=== PATIENT | female | born 1995 | race Native Hawaiian/Other Pacific Islander ===

== ENCOUNTER 2020-08-18 22:39 | Outpatient (CLI) | payer SELFPAY ==
[2020-08-18] MEDS ORDERED: LACTATED RINGERS 500 ML IV ONE (23:13)
[2020-08-18 23:33] VITALS: BP 128/75
== END 2020-08-18 23:49 | disposition home or self-care (01) ==
LOC: TRG 22:39 → APU 22:41 → TRG 23:49
PROVIDERS: ATTEND Obstetrics & Gynecology
DX: O36.8120 Decreased fetal movements, second trimester, not applicable or unspecified (principal); Z3A.25 25 weeks gestation of pregnancy
CPT/HCPCS: 59025

== ENCOUNTER 2020-09-03 08:48 | Outpatient (CLI) | payer BC ==
[2020-09-03 09:30] LABS: Basophils % (Auto) 0.2 % (0.0-1.8); Eosinophils # (Auto) 0.1 K/mm3 (0.0-0.4); Eosinophils % (Auto) 1.1 % (0.0-4.3); Hematocrit 39.5 % (30.3-42.9); Hemoglobin 13.2 gm/dl (10.1-14.3); Lymphocytes # (Auto) 2.5 K/mm3 (1.2-5.4); Mean Corpuscular HGB Conc 33 % (30-34); Mean Corpuscular Volume 88 fl (79-97); Monocytes # (Auto) 0.6 K/mm3 (0.0-0.8); Monocytes % (Auto) 4.8 % (0.0-7.3); Platelet Count 207 K/mm3 (140-440); Red Blood Count 4.49 M/mm3 (3.65-5.03)
== END 2020-09-03 08:49 | disposition home or self-care (01) ==
LOC: LAB 08:48
PROVIDERS: ATTEND Advanced Practice Midwife
DX: Z34.90 Encounter for supervision of normal pregnancy, unspecified, unspecified trimester (principal); Z3A.00 Weeks of gestation of pregnancy not specified
CPT/HCPCS: 36415; 82951; 85025; 86592; 86689

== ENCOUNTER 2020-09-30 10:41 | Outpatient (CLI) | payer BC ==
[2020-09-30 16:57] LABS: Total Volume,Urine 5400 ml
== END 2020-09-30 10:42 | disposition home or self-care (01) ==
LOC: LAB 10:41
PROVIDERS: ATTEND Obstetrics & Gynecology
DX: Z34.90 Encounter for supervision of normal pregnancy, unspecified, unspecified trimester (principal)
CPT/HCPCS: 84156

== ENCOUNTER 2020-10-12 23:31 | Outpatient (CLI) | payer BC ==
[2020-10-13] MEDS ORDERED: LACTATED RINGERS 500 ML IV ONE (00:22)
[2020-10-13] MEDS ORDERED: ACETAMINOPHEN 500 MG TAB PO ONE (01:35)
[2020-10-13] MEDS ORDERED: ONDANSETRON 4 MG/2 ML INJ IV PRN (01:38)
[2020-10-13 01:39] LABS: Hematocrit 39.6 % (30.3-42.9); Hemoglobin 13.3 gm/dl (10.1-14.3); Mean Corpuscular HGB Conc 34 % (30-34); Mean Corpuscular Volume 86 fl (79-97); Platelet Count 206 K/mm3 (140-440); Red Blood Count 4.59 M/mm3 (3.65-5.03); Red Cell Distribution Width 13.9 % (13.2-15.2)
[2020-10-13 01:43] LABS: Bacteria,Urine 1+ /HPF (Negative); Bilirubin,Urine NEG (Negative); Blood,Urine NEG (Negative); Color,Urine Colorless (Yellow); Urobilinogen,Urine < 2.0 mg/dL (<2.0); WBC,Urine < 1.0 /HPF (0.0-6.0)
[2020-10-13 01:50] LABS: Alanine Aminotransferase 9 units/L (7-56)
[2020-10-13 02:00] LABS: Uric Acid 6.3 mg/dL (3.5-7.6)
[2020-10-13 02:11] VITALS: BP 132/84
== END 2020-10-13 02:30 | disposition home or self-care (01) ==
LOC: TRG 23:31 → APU 23:46 → TRG 10-13 02:30
PROVIDERS: ATTEND Obstetrics & Gynecology
DX: O13.3 Gestational [pregnancy-induced] hypertension without significant proteinuria, third trimester (principal); O26.893 Other specified pregnancy related conditions, third trimester; R51.9 Headache, unspecified; O47.03 False labor before 37 completed weeks of gestation, third trimester; Z3A.33 33 weeks gestation of pregnancy
CPT/HCPCS: 36415; 59025; 81001; 82565; 83615; 84450; 84460; 84550; 85027; 96365; J2405

== ENCOUNTER 2020-10-17 22:56 | Inpatient (IN) | payer BC ==
[2020-10-18 00:03] LABS: Hematocrit 38.7 % (30.3-42.9); Mean Corpuscular HGB Conc 34 % (30-34); Mean Corpuscular Volume 87 fl (79-97); Platelet Count 191 K/mm3 (140-440); Red Blood Count 4.47 M/mm3 (3.65-5.03); Red Cell Distribution Width 13.7 % (13.2-15.2)
[2020-10-18 00:07] LABS: Bacteria,Urine 1+ /HPF (Negative); Bilirubin,Urine NEG (Negative); Blood,Urine NEG (Negative); Color,Urine Colorless (Yellow); Urobilinogen,Urine < 2.0 mg/dL (<2.0); WBC,Urine < 1.0 /HPF (0.0-6.0)
[2020-10-18 00:25] LABS: Alanine Aminotransferase 8 units/L (7-56)
[2020-10-18 02:39] LABS: Uric Acid 6.7 mg/dL (3.5-7.6)
[2020-10-18] MEDS ORDERED: PANTOPRAZOLE 40 MG INJ IV SCH (03:00)
[2020-10-18] MEDS ORDERED: valACYclovir 500 MG TAB PO ONE (03:05)
--- NOTE | 2020-10-18 03:05 | History and Physical Report ---
History of Present Illness Date of examination: 10/18/20 Chief complaint: my blood pressure was high at home History of present illness: Pt is a 25 year old female primigravida CHETAN 11/28/20 at 34w1d who presents with complaint that her blood pressure was 160/80 on her home machine, and denies headache, blurred vision, scotomata or RUQ pain. Upon arrival to the unit, BPs are 140-150/90s. Pt has known diagnosis of gestational hypertension (no meds presently) with 24 hour urine on 09/30/20 contained 216 mg of protein. She has had care at [facility] since 8 wks complicated by left breast mass s/p breast specialist referral (suspected fibroadenoma), and genital herpes without lesion or prodrome. Her GBS status is unknown. Past History Past Medical History: other (breast fibroadenoma ) Past Surgical History: other (ear surgery ) Family/Genetic History: diabetes, cancer Social history: no significant social history - Obstetrical History Expected Date of Delivery: 11/28/20 Actual Gestation: 34 Week(s) 1 Day(s) : 1 Medications and Allergies Allergies Allergy/AdvReac Type Severity Reaction Status Date / Time No Known Allergies Allergy Unverified 08/18/20 23:13 Home Medications Medication Instructions Recorded Confirmed Last Taken Type Vit-Fe Fumar-FA [ 1 tab PO DAILY 08/18/20 08/18/20 1 Day Ago History Vitamin] ~08/17/20 Active Meds: Active Medications Lactated Ringer's (Lactated Ringers) 1,000 mls @ 125 mls/hr IV DIRECT KURTIS Pantoprazole Sodium (Pantoprazole 40 Mg Inj) 40 mg IV QDAY KURTIS Review of Systems All systems: negative - Vital Signs Vital signs: Vital Signs Pulse BP 75 147/94 10/17/20 23:27 10/17/20 23:27 Temp Pulse Resp BP Pulse Ox 98.8 F 68 16 155/86 10/17/20 23:29 10/18/20 02:41 10/17/20 23:29 10/18/20 02:41 - Physical Exam Breasts: Positive: deferred Abdomen: Positive: soft (gravid ) Extremities: Positive: normal - Obstetrical FHR: auscultation normal Uterine Contraction Monitor Mode: External Results Result Diagrams: 10/17/20 23:35 10/17/20 23:35 Abnormal lab results 10/17/20 10/17/20 10/17/20 Range/Units 23:35 23:35 23:35 WBC 16.4 H (4.5-11.0) K/mm3 Lactate Dehydrogenase 199 H (91-180) units/L Ur Specific [place] 1.002 L (1.003-1.030) All other labs normal. Assessment and Plan A: IUP at 34w1d Gestational Hypertension Genital Herpes without lesion or prodrome GBS unknown P: Admit to antepartum service PIH panel Collect 24 hour urine protein Ultrasound for presentation and EFW Closely monitor maternal status
[2020-10-18] MEDS: LACTATED RINGERS 1,000 ML IV SCH ×2 (07:46→14:59)
[2020-10-18] MEDS ORDERED: dexAMETHasone 4 MG/ML VIAL IV SCH ×2 (08:00→10:00)
--- NOTE | 2020-10-18 08:53 | Ultrasound Report ---
US OB >= 14 weeks Fetus INDICATION: IUP at 34 wks, gestational hypertension. TECHNIQUE: Transabdominal. COMPARISON: None available. FINDINGS: There is a single intrauterine . Biparietal Diameter = 8.9 cm Head Circumference = 30.5 cm Abdominal Circumference = 29.6 cm Femur Length = 5.8 cm Heart Rate: 150 beats per minute. Estimated Weight in grams (if calculated): 2076 g Position: cephalic. IMPRESSION: 1. Single, living intrauterine with estimated sonographic age of 33 weeks, 4 day(s). 2. No significant sonographic abnormality. Signer Name: Efe Watson MD Signed: 10/18/2020 8:49 AM Workstation Name: [id number]
[2020-10-18] MEDS ORDERED: ACETAMINOPHEN 500 MG TAB PO ONE (12:03)
--- NOTE | 2020-10-18 12:08 | Event Note ---
Date: 10/18/20 On-call MD notified that patient reports headache. Offer a dose of Tylenol. If minimal relief, suggestive of severe disease and would proceed with induction.
[2020-10-18] MEDS ORDERED: ePHEDrine SULFATE 50 MG/1 ML INJ IV PRN (14:21)
[2020-10-18] MEDS ORDERED: LIDOCAINE (2%) 20 MG/1 ML VIAL 20 ML MDV INFILTRATI ONE (14:21)
[2020-10-18] MEDS ORDERED: MINERAL OIL 30 ML ORAL LIQD PO PRN (14:21)
[2020-10-18] MEDS ORDERED: TERBUTALINE 1 MG/1 ML INJ SUB-Q PRN (14:21)
[2020-10-18] MEDS ORDERED: miSOPROStol 200 MCG TAB PR PRN (14:22)
[2020-10-18] MEDS ORDERED: hydrALAZINE 20 MG/1 ML INJ IV PRN (14:22)
[2020-10-18] MEDS ORDERED: LOPERAMIDE 2 MG CAP PO PRN (14:22)
[2020-10-18] MEDS ORDERED: PROMETHAZINE 25 MG RECT SUPP PR PRN (14:22)
[2020-10-18] MEDS ORDERED: CARBOPROST TROMETHAMINE 250 MCG/1 ML INJ IM PRN (14:22)
[2020-10-18] MEDS ORDERED: AMPICILLIN/NS 2 GM/100 ML 2 GM/100 ML BAG IV ONE (14:22)
[2020-10-18] MEDS ORDERED: OXYTOCIN 10 UNIT/1 ML INJ IM PRN (14:22)
[2020-10-18] MEDS ORDERED: BUTORPHANOL 2 MG/1 ML INJ IV PRN ×2 (14:22)
[2020-10-18] MEDS ORDERED: CALCIUM GLUCONATE 1000 MG/10 ML INJ IV PRN (14:22)
[2020-10-18] MEDS ORDERED: DINOPROSTONE 10 MG VAG SUPP VG NR (14:22)
[2020-10-18] MEDS ORDERED: ACETAMINOPHEN 325 MG TAB PO PRN (14:22)
[2020-10-18] MEDS ORDERED: fentaNYL 100 MCG/2 ML INJ IV PRN (14:22)
[2020-10-18] MEDS ORDERED: MAGNESIUM SULFATE 4 GM/100 ML BAG IV ONE (14:22)
[2020-10-18] MEDS ORDERED: LACTATED RINGERS 1,000 ML IV SCH ×2 (14:30)
[2020-10-18] MEDS ORDERED: OXYTOCIN DRIP 30 UNITS/500 ML BAG IV SCH ×2 (15:00)
[2020-10-18] MEDS: MAGNESIUM SULFATE 40GM/1000ML 40 GM/1,000 ML BAG IV SCH (15:39)
[2020-10-18] MEDS ORDERED: AMPICILLIN/NS 1 GM/50 ML 1 GM/50 ML BAG IV SCH (19:00)
[2020-10-18] MEDS: ONDANSETRON 4 MG/2 ML INJ IV PRN (19:54)
[2020-10-18] MEDS: dexAMETHasone 4 MG/ML VIAL IM SCH (22:35)
[2020-10-19] MEDS: LACTATED RINGERS 1,000 ML IV SCH ×2 (02:40→17:24)
[2020-10-19] MEDS: OXYTOCIN DRIP 30 UNITS/500 ML BAG IV SCH ×10 (06:23→15:47)
[2020-10-19] MEDS: dexAMETHasone 4 MG/ML VIAL IM SCH ×2 (08:15→20:11)
[2020-10-19] MEDS: ONDANSETRON 4 MG/2 ML INJ IV PRN (08:23)
--- NOTE | 2020-10-19 08:58 | Progress Note ---
Subjective - Subjective Date of service: 10/19/20 Interval history: AROM clear fluid FHT Category 1 [place]: irrregular cervix 2cm/80/-2 continue oxytocin per protocol AAOx3,no HUGHES at bedside BP's stable on MgSo4 Neuro:intact Maternal/ well being reassuring overall Lien Chavarria MD Objective - Vital Signs Vital Signs: Vital Signs - 12hr 10/18/20 10/18/20 10/18/20 20:59 21:03 21:04 Temperature Pulse Rate 97 H 84 Respiratory 18 Rate Blood Pressure Blood Pressure [Right] O2 Sat by Pulse 98 97 Oximetry 10/18/20 10/18/20 10/18/20 21:09 21:13 21:14 Temperature Pulse Rate 89 94 H 87 Respiratory Rate Blood Pressure 122/68 Blood Pressure [Right] O2 Sat by Pulse 97 94 98 Oximetry 10/18/20 10/18/20 10/18/20 21:19 21:24 21:29 Temperature Pulse Rate 106 H 93 H 106 H Respiratory Rate Blood Pressure Blood Pressure [Right] O2 Sat by Pulse 96 98 98 Oximetry 10/18/20 10/18/20 10/18/20 21:34 21:39 21:44 Temperature Pulse Rate 93 H 93 H 90 Respiratory Rate Blood Pressure 128/72 Blood Pressure [Right] O2 Sat by Pulse 98 98 98 Oximetry 10/18/20 10/18/20 10/18/20 21:49 21:54 21:59 Temperature Pulse Rate 92 H 94 H 94 H Respiratory Rate Blood Pressure Blood Pressure [Right] O2 Sat by Pulse 99 98 97 Oximetry 10/18/20 10/18/20 10/18/20 22:04 22:09 22:13 Temperature Pulse Rate 103 H 93 H 90 Respiratory Rate Blood Pressure 126/71 Blood Pressure [Right] O2 Sat by Pulse 94 99 Oximetry 10/18/20 10/18/20 10/18/20 22:14 22:19 22:24 Temperature Pulse Rate 92 H 96 H 103 H Respiratory Rate Blood Pressure Blood Pressure [Right] O2 Sat by Pulse 97 97 97 Oximetry 10/18/20 10/18/20 10/18/20 22:29 22:34 22:39 Temperature Pulse Rate 110 H 92 H 92 H Respiratory Rate Blood Pressure Blood Pressure [Right] O2 Sat by Pulse 98 98 99 Oximetry 10/18/20 10/18/20 10/18/20 22:43 22:44 22:49 Temperature Pulse Rate 96 H 97 H 95 H Respiratory Rate Blood Pressure 144/88 Blood Pressure [Right] O2 Sat by Pulse 99 98 Oximetry 10/18/20 10/18/20 10/18/20 22:54 22:59 23:04 Temperature Pulse Rate 99 H 102 H 113 H Respiratory Rate Blood Pressure Blood Pressure [Right] O2 Sat by Pulse 98 98 98 Oximetry 10/18/20 10/18/20 10/18/20 23:09 23:14 23:15 Temperature Pulse Rate 108 H 95 H 99 H Respiratory Rate Blood Pressure 135/75 Blood Pressure [Right] O2 Sat by Pulse 98 98 Oximetry 10/18/20 10/18/20 10/18/20 23:19 23:24 23:29 Temperature Pulse Rate 100 H 93 H 90 Respiratory Rate Blood Pressure Blood Pressure [Right] O2 Sat by Pulse 97 97 98 Oximetry 10/18/20 10/18/20 10/18/20 23:34 23:38 23:39 Temperature Pulse Rate 95 H 95 H 89 Respiratory Rate Blood Pressure Blood Pressure [Right] O2 Sat by Pulse 100 94 99 Oximetry 10/18/20 10/18/20 10/18/20 23:43 23:44 23:49 Temperature Pulse Rate 86 91 H 87 Respiratory Rate Blood Pressure 124/70 Blood Pressure [Right] O2 Sat by Pulse 97 96 Oximetry 10/18/20 10/18/20 10/19/20 23:54 23:59 00:04 Temperature Pulse Rate 87 95 H 100 H Respiratory Rate Blood Pressure Blood Pressure [Right] O2 Sat by Pulse 95 97 98 Oximetry 10/19/20 10/19/20 10/19/20 00:09 00:13 00:14 Temperature Pulse Rate 93 H 96 H 89 Respiratory Rate Blood Pressure 133/81 Blood Pressure [Right] O2 Sat by Pulse 98 99 Oximetry 10/19/20 10/19/20 10/19/20 00:19 00:24 00:29 Temperature Pulse Rate 97 H 102 H 95 H Respiratory Rate Blood Pressure Blood Pressure [Right] O2 Sat by Pulse 99 94 99 Oximetry 10/19/20 10/19/20 10/19/20 00:34 00:39 00:43 Temperature Pulse Rate 93 H 95 H 96 H Respiratory Rate Blood Pressure 148/82 Blood Pressure [Right] O2 Sat by Pulse 98 99 Oximetry 10/19/20 10/19/20 10/19/20 00:44 00:49 00:54 Temperature Pulse Rate 100 H 99 H 89 Respiratory Rate Blood Pressure Blood Pressure [Right] O2 Sat by Pulse 98 99 98 Oximetry 10/19/20 10/19/20 10/19/20 00:59 01:04 01:09 Temperature Pulse Rate 94 H 93 H 95 H Respiratory Rate Blood Pressure Blood Pressure [Right] O2 Sat by Pulse 93 97 97 Oximetry 10/19/20 10/19/20 10/19/20 01:13 01:14 01:19 Temperature Pulse Rate 90 90 87 Respiratory Rate Blood Pressure 147/73 Blood Pressure [Right] O2 Sat by Pulse 94 97 96 Oximetry 10/19/20 10/19/20 10/19/20 01:24 01:29 01:32 Temperature Pulse Rate 88 93 H 98 H Respiratory Rate Blood Pressure Blood Pressure [Right] O2 Sat by Pulse 96 96 93 Oximetry 10/19/20 10/19/20 10/19/20 01:34 01:39 01:43 Temperature Pulse Rate 100 H 92 H 90 Respiratory Rate Blood Pressure 137/84 Blood Pressure [Right] O2 Sat by Pulse 98 99 Oximetry 10/19/20 10/19/20 10/19/20 01:44 01:49 01:54 Temperature Pulse Rate 94 H 103 H 98 H Respiratory Rate Blood Pressure Blood Pressure [Right] O2 Sat by Pulse 98 99 96 Oximetry 10/19/20 10/19/20 10/19/20 01:59 02:04 02:09 Temperature Pulse Rate 102 H 111 H 95 H Respiratory Rate Blood Pressure Blood Pressure [Right] O2 Sat by Pulse 96 97 97 Oximetry 10/19/20 10/19/20 10/19/20 02:13 02:14 02:19 Temperature Pulse Rate 96 H 96 H 95 H Respiratory Rate Blood Pressure 126/59 Blood Pressure [Right] O2 Sat by Pulse 97 97 Oximetry 10/19/20 10/19/20 10/19/20 02:24 02:29 02:34 Temperature Pulse Rate 95 H 89 87 Respiratory Rate Blood Pressure Blood Pressure [Right] O2 Sat by Pulse 97 95 97 Oximetry 10/19/20 10/19/20 10/19/20 02:38 02:39 02:44 Temperature 97.7 F Pulse Rate 91 H 88 Respiratory 15 Rate Blood Pressure 139/82 Blood Pressure [Right] O2 Sat by Pulse 96 97 Oximetry 10/19/20 10/19/20 10/19/20 02:49 02:54 02:59 Temperature Pulse Rate 87 84 84 Respiratory Rate Blood Pressure Blood Pressure [Right] O2 Sat by Pulse 96 97 96 Oximetry 10/19/20 10/19/20 10/19/20 03:04 03:09 03:14 Temperature Pulse Rate 83 83 87 Respiratory Rate Blood Pressure Blood Pressure [Right] O2 Sat by Pulse 95 95 95 Oximetry 10/19/20 10/19/20 10/19/20 03:19 03:24 03:27 Temperature Pulse Rate 86 83 85 Respiratory Rate Blood Pressure Blood Pressure [Right] O2 Sat by Pulse 95 95 94 Oximetry 10/19/20 10/19/20 10/19/20 03:29 03:34 03:37 Temperature Pulse Rate 81 91 H 88 Respiratory Rate Blood Pressure Blood Pressure [Right] O2 Sat by Pulse 95 95 94 Oximetry 10/19/20 10/19/20 10/19/20 03:39 03:44 03:47 Temperature Pulse Rate 91 H 82 91 H Respiratory Rate Blood Pressure 123/58 Blood Pressure [Right] O2 Sat by Pulse 96 96 94 Oximetry 10/19/20 10/19/20 10/19/20 03:49 03:54 03:58 Temperature Pulse Rate 89 84 79 Respiratory Rate Blood Pressure Blood Pressure [Right] O2 Sat by Pulse 96 96 94 Oximetry 10/19/20 10/19/20 10/19/20 03:59 04:04 04:09 Temperature Pulse Rate 84 81 81 Respiratory Rate Blood Pressure Blood Pressure [Right] O2 Sat by Pulse 96 97 97 Oximetry 10/19/20 10/19/20 10/19/20 04:14 04:19 04:24 Temperature Pulse Rate 85 83 85 Respiratory Rate Blood Pressure Blood Pressure [Right] O2 Sat by Pulse 97 97 97 Oximetry 10/19/20 10/19/20 10/19/20 04:29 04:34 04:39 Temperature Pulse Rate 84 98 H 83 Respiratory Rate Blood Pressure 129/69 Blood Pressure [Right] O2 Sat by Pulse 96 97 98 Oximetry 10/19/20 10/19/20 10/19/20 04:44 04:49 04:54 Temperature Pulse Rate 83 84 85 Respiratory Rate Blood Pressure Blood Pressure [Right] O2 Sat by Pulse 97 97 97 Oximetry 10/19/20 10/19/20 10/19/20 04:59 05:04 05:09 Temperature Pulse Rate 81 83 92 H Respiratory Rate Blood Pressure Blood Pressure [Right] O2 Sat by Pulse 97 96 97 Oximetry 10/19/20 10/19/20 10/19/20 05:14 05:19 05:24 Temperature Pulse Rate 81 87 92 H Respiratory Rate Blood Pressure Blood Pressure [Right] O2 Sat by Pulse 97 97 97 Oximetry 10/19/20 10/19/20 10/19/20 05:29 05:34 05:39 Temperature Pulse Rate 87 90 92 H Respiratory Rate Blood Pressure 125/69 Blood Pressure [Right] O2 Sat by Pulse 98 98 98 Oximetry 10/19/20 10/19/20 10/19/20 05:44 05:49 05:54 Temperature Pulse Rate 97 H 96 H 89 Respiratory Rate Blood Pressure Blood Pressure [Right] O2 Sat by Pulse 97 97 98 Oximetry 10/19/20 10/19/20 10/19/20 05:59 06:04 06:09 Temperature Pulse Rate 84 84 82 Respiratory Rate Blood Pressure Blood Pressure [Right] O2 Sat by Pulse 97 98 98 Oximetry 10/19/20 10/19/20 10/19/20 06:14 06:19 06:23 Temperature Pulse Rate 81 80 92 H Respiratory Rate Blood Pressure 130/69 Blood Pressure [Right] O2 Sat by Pulse 97 97 91 Oximetry 10/19/20 10/19/20 10/19/20 06:24 06:29 06:34 Temperature Pulse Rate 87 82 81 Respiratory Rate Blood Pressure Blood Pressure [Right] O2 Sat by Pulse 96 96 96 Oximetry 10/19/20 10/19/20 10/19/20 06:39 06:44 06:48 Temperature Pulse Rate 84 93 H 96 H Respiratory Rate Blood Pressure 129/73 Blood Pressure [Right] O2 Sat by Pulse 96 98 92 Oximetry 10/19/20 10/19/20 10/19/20 06:49 06:54 06:58 Temperature Pulse Rate 94 H 97 H 105 H Respiratory Rate Blood Pressure Blood Pressure [Right] O2 Sat by Pulse 98 98 94 Oximetry 10/19/20 10/19/20 10/19/20 06:59 07:04 07:07 Temperature Pulse Rate 86 87 78 Respiratory Rate Blood Pressure Blood Pressure [Right] O2 Sat by Pulse 98 97 94 Oximetry 10/19/20 10/19/20 10/19/20 07:09 07:14 07:19 Temperature Pulse Rate 76 89 84 Respiratory Rate Blood Pressure Blood Pressure [Right] O2 Sat by Pulse 94 97 98 Oximetry 10/19/20 10/19/20 10/19/20 07:24 07:29 07:34 Temperature Pulse Rate 82 93 H 80 Respiratory Rate Blood Pressure Blood Pressure [Right] O2 Sat by Pulse 97 96 96 Oximetry 10/19/20 10/19/20 10/19/20 07:39 07:44 07:49 Temperature Pulse Rate 91 H 76 84 Respiratory Rate Blood Pressure 123/68 Blood Pressure [Right] O2 Sat by Pulse 96 98 97 Oximetry 10/19/20 10/19/20 10/19/20 07:53 07:54 07:55 Temperature 98.1 F Pulse Rate 77 101 H 80 Respiratory 18 Rate Blood Pressure 126/61 Blood Pressure 126/61 [Right] O2 Sat by Pulse 97 97 Oximetry 10/19/20 10/19/20 10/19/20 07:59 08:01 08:04 Temperature Pulse Rate 80 92 H 83 Respiratory Rate Blood Pressure 120/61 Blood Pressure [Right] O2 Sat by Pulse 97 95 Oximetry 10/19/20 10/19/20 10/19/20 08:09 08:14 08:19 Temperature Pulse Rate 104 H 85 81 Respiratory Rate Blood Pressure Blood Pressure [Right] O2 Sat by Pulse 96 97 98 Oximetry 10/19/20 10/19/20 10/19/20 08:24 08:29 08:34 Temperature Pulse Rate 89 83 87 Respiratory Rate Blood Pressure Blood Pressure [Right] O2 Sat by Pulse 96 96 98 Oximetry 10/19/20 10/19/20 10/19/20 08:39 08:44 08:48 Temperature Pulse Rate 83 83 86 Respiratory Rate Blood Pressure 109/56 Blood Pressure [Right] O2 Sat by Pulse 95 95 94 Oximetry 10/19/20 10/19/20 08:49 08:54 Temperature Pulse Rate 91 H 90 Respiratory Rate Blood Pressure Blood Pressure [Right] O2 Sat by Pulse 97 98 Oximetry - Labs Labs: Abnormal Labs 10/17/20 10/17/20 10/17/20 23:35 23:35 23:35 WBC 16.4 H Magnesium Lactate Dehydrogenase 199 H Ur Specific [place] 1.002 L 10/19/20 10/19/20 00:59 07:08 WBC Magnesium 5.80 H 5.80 H Lactate Dehydrogenase Ur Specific [place] Laboratory Results - last 24 hr 10/18/20 10/19/20 10/19/20 15:00 00:59 07:08 Magnesium 5.80 H 5.80 H Blood Type A POSITIVE Antibody Screen Negative
[2020-10-19] MEDS ORDERED: AMPICILLIN/NS 2 GM/100 ML 2 GM/100 ML BAG IV ONE (10:30)
[2020-10-19] MEDS ORDERED: valACYclovir 500 MG TAB PO ONE (11:00)
[2020-10-19] MEDS: MAGNESIUM SULFATE 40GM/1000ML 40 GM/1,000 ML BAG IV SCH (11:53)
[2020-10-19] MEDS: AMPICILLIN/NS 1 GM/50 ML 1 GM/50 ML BAG IV SCH ×3 (14:35→20:08)
[2020-10-19] MEDS: miSOPROStol 25 MCG TAB PO SCH (18:46)
--- NOTE | 2020-10-19 20:33 | Progress Note ---
Subjective - Subjective Date of service: 10/19/20 Interval history: PM Rounds FHT 130 [place],minimal to moderate variability: Category 1 tracing [place]: irregular Oxytocin to 18mu/min wiht no response, plan for cytotoec 25MCG PO Q6x4 doses then restart pitocin if needed GBS pos on ABx MGSO4: leve ~6 BPs stable Continue current managment Maternal/ well being reassuring overall. Lien Barrios Objective - Vital Signs Vital Signs: Vital Signs - 12hr 10/19/20 10/19/20 10/19/20 08:34 08:39 08:44 Temperature Pulse Rate 87 83 83 Respiratory Rate Blood Pressure 109/56 Blood Pressure [Right] O2 Sat by Pulse 98 95 95 Oximetry 10/19/20 10/19/20 10/19/20 08:48 08:49 08:54 Temperature Pulse Rate 86 91 H 90 Respiratory Rate Blood Pressure Blood Pressure [Right] O2 Sat by Pulse 94 97 98 Oximetry 10/19/20 10/19/20 10/19/20 08:59 09:03 09:04 Temperature Pulse Rate 75 72 78 Respiratory Rate Blood Pressure 118/68 Blood Pressure [Right] O2 Sat by Pulse 96 94 96 Oximetry 10/19/20 10/19/20 10/19/20 09:09 09:12 09:14 Temperature Pulse Rate 79 81 85 Respiratory Rate Blood Pressure Blood Pressure [Right] O2 Sat by Pulse 96 94 96 Oximetry 10/19/20 10/19/20 10/19/20 09:19 09:24 09:29 Temperature Pulse Rate 82 85 78 Respiratory Rate Blood Pressure Blood Pressure [Right] O2 Sat by Pulse 97 96 97 Oximetry 10/19/20 10/19/20 10/19/20 09:34 09:39 09:44 Temperature Pulse Rate 77 75 78 Respiratory Rate Blood Pressure 124/81 Blood Pressure [Right] O2 Sat by Pulse 97 96 98 Oximetry 10/19/20 10/19/20 10/19/20 09:49 09:54 09:59 Temperature Pulse Rate 87 107 H 90 Respiratory Rate Blood Pressure Blood Pressure [Right] O2 Sat by Pulse 96 98 99 Oximetry 10/19/20 10/19/20 10/19/20 10:05 10:10 10:15 Temperature Pulse Rate 85 86 81 Respiratory Rate Blood Pressure Blood Pressure [Right] O2 Sat by Pulse 98 98 96 Oximetry 10/19/20 10/19/20 10/19/20 10:20 10:25 10:30 Temperature Pulse Rate 75 82 90 Respiratory Rate Blood Pressure Blood Pressure [Right] O2 Sat by Pulse 97 96 96 Oximetry 10/19/20 10/19/20 10/19/20 10:35 10:39 10:40 Temperature Pulse Rate 85 72 104 H Respiratory Rate Blood Pressure 120/61 Blood Pressure [Right] O2 Sat by Pulse 95 97 Oximetry 10/19/20 10/19/20 10/19/20 10:45 10:50 10:55 Temperature Pulse Rate 77 86 72 Respiratory Rate Blood Pressure Blood Pressure [Right] O2 Sat by Pulse 96 97 96 Oximetry 10/19/20 10/19/20 10/19/20 11:00 11:02 11:05 Temperature Pulse Rate 79 72 73 Respiratory Rate Blood Pressure 119/61 Blood Pressure [Right] O2 Sat by Pulse 97 93 96 Oximetry 10/19/20 10/19/20 10/19/20 11:10 11:15 11:20 Temperature Pulse Rate 76 76 74 Respiratory Rate Blood Pressure Blood Pressure [Right] O2 Sat by Pulse 97 96 96 Oximetry 10/19/20 10/19/20 10/19/20 11:25 11:30 11:35 Temperature Pulse Rate 82 74 84 Respiratory Rate Blood Pressure Blood Pressure [Right] O2 Sat by Pulse 96 96 95 Oximetry 10/19/20 10/19/20 10/19/20 11:39 11:40 11:45 Temperature Pulse Rate 80 76 78 Respiratory Rate Blood Pressure 127/71 Blood Pressure [Right] O2 Sat by Pulse 96 97 Oximetry 10/19/20 10/19/20 10/19/20 11:50 11:54 11:55 Temperature Pulse Rate 79 81 85 Respiratory Rate Blood Pressure 126/71 Blood Pressure [Right] O2 Sat by Pulse 97 97 Oximetry 10/19/20 10/19/20 10/19/20 11:59 12:00 12:05 Temperature 98.2 F Pulse Rate 84 84 78 Respiratory 18 Rate Blood Pressure Blood Pressure 126/71 [Right] O2 Sat by Pulse 97 97 96 Oximetry 10/19/20 10/19/20 10/19/20 12:10 12:15 12:20 Temperature Pulse Rate 83 84 80 Respiratory Rate Blood Pressure Blood Pressure [Right] O2 Sat by Pulse 97 97 95 Oximetry 10/19/20 10/19/20 10/19/20 12:25 12:30 12:35 Temperature Pulse Rate 82 92 H 84 Respiratory Rate Blood Pressure Blood Pressure [Right] O2 Sat by Pulse 97 97 97 Oximetry 10/19/20 10/19/20 10/19/20 12:39 12:40 12:45 Temperature Pulse Rate 92 H 92 H 84 Respiratory Rate Blood Pressure 133/70 Blood Pressure [Right] O2 Sat by Pulse 92 97 98 Oximetry 10/19/20 10/19/20 10/19/20 12:49 12:50 12:55 Temperature Pulse Rate 80 85 100 H Respiratory Rate Blood Pressure 135/73 Blood Pressure [Right] O2 Sat by Pulse 98 99 Oximetry 10/19/20 10/19/20 10/19/20 13:00 13:05 13:09 Temperature Pulse Rate 88 99 H 84 Respiratory Rate Blood Pressure Blood Pressure [Right] O2 Sat by Pulse 99 98 94 Oximetry 10/19/20 10/19/20 10/19/20 13:10 13:15 13:20 Temperature Pulse Rate 87 94 H 89 Respiratory Rate Blood Pressure Blood Pressure [Right] O2 Sat by Pulse 98 98 98 Oximetry 10/19/20 10/19/20 10/19/20 13:25 13:29 13:30 Temperature Pulse Rate 97 H 92 H 92 H Respiratory Rate Blood Pressure 133/97 Blood Pressure [Right] O2 Sat by Pulse 98 98 Oximetry 10/19/20 10/19/20 10/19/20 13:35 13:39 13:40 Temperature Pulse Rate 90 91 H 93 H Respiratory Rate Blood Pressure 135/83 Blood Pressure [Right] O2 Sat by Pulse 96 97 Oximetry 10/19/20 10/19/20 10/19/20 13:45 13:50 13:55 Temperature Pulse Rate 93 H 95 H 88 Respiratory Rate Blood Pressure Blood Pressure [Right] O2 Sat by Pulse 98 98 98 Oximetry 10/19/20 10/19/20 10/19/20 14:00 14:05 14:07 Temperature Pulse Rate 87 92 H 94 H Respiratory Rate Blood Pressure 146/96 Blood Pressure [Right] O2 Sat by Pulse 98 98 Oximetry 10/19/20 10/19/20 10/19/20 14:10 14:11 14:15 Temperature Pulse Rate 85 75 88 Respiratory Rate Blood Pressure 133/69 Blood Pressure [Right] O2 Sat by Pulse 98 98 Oximetry 10/19/20 10/19/20 10/19/20 14:20 14:25 14:30 Temperature Pulse Rate 86 84 91 H Respiratory Rate Blood Pressure Blood Pressure [Right] O2 Sat by Pulse 96 97 94 Oximetry 10/19/20 10/19/20 10/19/20 14:31 14:35 14:40 Temperature Pulse Rate 81 82 71 Respiratory Rate Blood Pressure 115/68 Blood Pressure [Right] O2 Sat by Pulse 94 96 95 Oximetry 10/19/20 10/19/20 10/19/20 14:45 14:50 14:55 Temperature Pulse Rate 69 66 72 Respiratory Rate Blood Pressure Blood Pressure [Right] O2 Sat by Pulse 96 96 95 Oximetry 10/19/20 10/19/20 10/19/20 14:56 15:00 15:05 Temperature Pulse Rate 75 67 74 Respiratory Rate Blood Pressure Blood Pressure [Right] O2 Sat by Pulse 94 97 98 Oximetry 10/19/20 10/19/20 10/19/20 15:10 15:15 15:20 Temperature Pulse Rate 74 67 71 Respiratory Rate Blood Pressure Blood Pressure [Right] O2 Sat by Pulse 98 97 96 Oximetry 10/19/20 10/19/20 10/19/20 15:25 15:30 15:35 Temperature Pulse Rate 84 91 H 80 Respiratory Rate Blood Pressure Blood Pressure [Right] O2 Sat by Pulse 99 98 97 Oximetry 10/19/20 10/19/20 10/19/20 15:40 15:45 15:49 Temperature Pulse Rate 88 81 85 Respiratory Rate Blood Pressure 136/78 136/82 Blood Pressure [Right] O2 Sat by Pulse 95 98 Oximetry 10/19/20 10/19/20 10/19/20 15:50 15:55 16:00 Temperature Pulse Rate 85 95 H 89 Respiratory Rate Blood Pressure Blood Pressure [Right] O2 Sat by Pulse 97 98 97 Oximetry 10/19/20 10/19/20 10/19/20 16:02 16:05 16:10 Temperature 97.7 F Pulse Rate 90 79 84 Respiratory 12 Rate Blood Pressure Blood Pressure 136/82 [Right] O2 Sat by Pulse 96 98 96 Oximetry 10/19/20 10/19/20 10/19/20 16:15 16:20 16:25 Temperature Pulse Rate 92 H 84 91 H Respiratory Rate Blood Pressure Blood Pressure [Right] O2 Sat by Pulse 98 97 97 Oximetry 10/19/20 10/19/20 10/19/20 16:30 16:34 16:35 Temperature Pulse Rate 85 84 83 Respiratory Rate Blood Pressure Blood Pressure [Right] O2 Sat by Pulse 96 94 95 Oximetry 10/19/20 10/19/20 10/19/20 16:39 16:40 16:45 Temperature Pulse Rate 78 86 89 Respiratory Rate Blood Pressure 105/55 Blood Pressure [Right] O2 Sat by Pulse 97 98 Oximetry 10/19/20 10/19/20 10/19/20 16:50 16:55 17:00 Temperature Pulse Rate 86 83 81 Respiratory Rate Blood Pressure Blood Pressure [Right] O2 Sat by Pulse 98 97 98 Oximetry 10/19/20 10/19/20 10/19/20 17:05 17:10 17:15 Temperature Pulse Rate 87 77 78 Respiratory Rate Blood Pressure Blood Pressure [Right] O2 Sat by Pulse 95 97 98 Oximetry 10/19/20 10/19/20 10/19/20 17:20 17:25 17:59 Temperature Pulse Rate 83 86 81 Respiratory Rate Blood Pressure Blood Pressure [Right] O2 Sat by Pulse 96 97 98 Oximetry 10/19/20 10/19/20 10/19/20 18:00 18:04 18:09 Temperature Pulse Rate 83 82 89 Respiratory Rate Blood Pressure 120/67 Blood Pressure [Right] O2 Sat by Pulse 97 98 Oximetry 10/19/20 10/19/20 10/19/20 18:14 18:19 18:24 Temperature Pulse Rate 89 82 101 H Respiratory Rate Blood Pressure Blood Pressure [Right] O2 Sat by Pulse 98 99 98 Oximetry 10/19/20 10/19/20 10/19/20 18:29 18:30 18:34 Temperature Pulse Rate 89 92 H 89 Respiratory Rate Blood Pressure 133/80 Blood Pressure [Right] O2 Sat by Pulse 99 99 Oximetry 10/19/20 10/19/20 10/19/20 18:39 18:44 18:49 Temperature Pulse Rate 94 H 88 85 Respiratory Rate Blood Pressure Blood Pressure [Right] O2 Sat by Pulse 98 99 99 Oximetry 10/19/20 10/19/20 10/19/20 18:54 18:59 19:00 Temperature Pulse Rate 83 90 79 Respiratory Rate Blood Pressure 124/75 Blood Pressure [Right] O2 Sat by Pulse 98 98 Oximetry 10/19/20 10/19/20 10/19/20 19:04 19:09 19:14 Temperature Pulse Rate 93 H 91 H 94 H Respiratory Rate Blood Pressure Blood Pressure [Right] O2 Sat by Pulse 98 98 99 Oximetry 10/19/20 10/19/20 10/19/20 19:19 19:24 19:29 Temperature Pulse Rate 87 88 94 H Respiratory Rate Blood Pressure Blood Pressure [Right] O2 Sat by Pulse 98 99 99 Oximetry 10/19/20 10/19/20 10/19/20 19:30 19:34 19:39 Temperature Pulse Rate 86 85 91 H Respiratory Rate Blood Pressure 142/82 Blood Pressure [Right] O2 Sat by Pulse 98 99 Oximetry 10/19/20 10/19/20 10/19/20 19:44 19:49 19:54 Temperature Pulse Rate 102 H 80 90 Respiratory Rate Blood Pressure Blood Pressure [Right] O2 Sat by Pulse 99 98 98 Oximetry 10/19/20 10/19/20 10/19/20 19:59 20:00 20:04 Temperature Pulse Rate 92 H 89 88 Respiratory Rate Blood Pressure 126/73 130/86 Blood Pressure [Right] O2 Sat by Pulse 98 98 Oximetry 10/19/20 10/19/20 10/19/20 20:06 20:09 20:14 Temperature 98.1 F Pulse Rate 100 H 86 Respiratory 18 Rate Blood Pressure Blood Pressure [Right] O2 Sat by Pulse 98 98 Oximetry 10/19/20 10/19/20 20:19 20:24 Temperature Pulse Rate 89 93 H Respiratory Rate Blood Pressure Blood Pressure [Right] O2 Sat by Pulse 98 98 Oximetry - Labs Labs: Abnormal Labs 10/17/20 10/17/20 10/17/20 23:35 23:35 23:35 WBC 16.4 H Magnesium Lactate Dehydrogenase 199 H Ur Specific [place] 1.002 L Coronavirus (PCR) 10/19/20 10/19/20 10/19/20 00:59 07:08 09:20 WBC Magnesium 5.80 H 5.80 H Lactate Dehydrogenase Ur Specific [place] Coronavirus (PCR) Positive A 10/19/20 10/19/20 13:07 19:24 WBC Magnesium 6.10 H 6.00 H Lactate Dehydrogenase Ur Specific [place] Coronavirus (PCR) Laboratory Results - last 24 hr 10/19/20 10/19/20 10/19/20 00:59 07:08 09:20 Magnesium 5.80 H 5.80 H Coronavirus (PCR) Positive A 10/19/20 10/19/20 13:07 19:24 Magnesium 6.10 H 6.00 H Coronavirus (PCR)
[2020-10-20] MEDS: miSOPROStol 25 MCG TAB PO SCH (02:27)
[2020-10-20] MEDS: AMPICILLIN/NS 1 GM/50 ML 1 GM/50 ML BAG IV SCH ×4 (05:40→15:29)
--- NOTE | 2020-10-20 05:47 | Progress Note ---
Subjective - Subjective Date of service: 10/20/20 Interval history: AM Rounds pt comfortably, no complaints FHT 130 baseline,minimal to moderate variability: Category 1 tracing [place]: irregular Cervix 3cm/80/-2, SP cytotecx2 doses with good response. Plan for oxytocin per protocol GBS pos on ABx MGSO4: level ~6 BPs stable, good urine output. Neuro exam WNL Continue current management, no S/S chorio, PE stable. Maternal/ well being reassuring overall. Lien Barrios Objective - Vital Signs Vital Signs: Vital Signs - 12hr 10/19/20 10/19/20 10/19/20 17:59 18:00 18:04 Temperature Pulse Rate 81 83 82 Respiratory Rate Blood Pressure 120/67 O2 Sat by Pulse 98 97 Oximetry 10/19/20 10/19/20 10/19/20 18:09 18:14 18:19 Temperature Pulse Rate 89 89 82 Respiratory Rate Blood Pressure O2 Sat by Pulse 98 98 99 Oximetry 10/19/20 10/19/20 10/19/20 18:24 18:29 18:30 Temperature Pulse Rate 101 H 89 92 H Respiratory Rate Blood Pressure 133/80 O2 Sat by Pulse 98 99 Oximetry 10/19/20 10/19/20 10/19/20 18:34 18:39 18:44 Temperature Pulse Rate 89 94 H 88 Respiratory Rate Blood Pressure O2 Sat by Pulse 99 98 99 Oximetry 10/19/20 10/19/20 10/19/20 18:49 18:54 18:59 Temperature Pulse Rate 85 83 90 Respiratory Rate Blood Pressure O2 Sat by Pulse 99 98 98 Oximetry 10/19/20 10/19/20 10/19/20 19:00 19:04 19:09 Temperature Pulse Rate 79 93 H 91 H Respiratory Rate Blood Pressure 124/75 O2 Sat by Pulse 98 98 Oximetry 10/19/20 10/19/20 10/19/20 19:14 19:19 19:24 Temperature Pulse Rate 94 H 87 88 Respiratory Rate Blood Pressure O2 Sat by Pulse 99 98 99 Oximetry 10/19/20 10/19/20 10/19/20 19:29 19:30 19:34 Temperature Pulse Rate 94 H 86 85 Respiratory Rate Blood Pressure 142/82 O2 Sat by Pulse 99 98 Oximetry 10/19/20 10/19/20 10/19/20 19:39 19:44 19:49 Temperature Pulse Rate 91 H 102 H 80 Respiratory Rate Blood Pressure O2 Sat by Pulse 99 99 98 Oximetry 10/19/20 10/19/20 10/19/20 19:54 19:59 20:00 Temperature Pulse Rate 90 92 H 89 Respiratory Rate Blood Pressure 126/73 O2 Sat by Pulse 98 98 Oximetry 10/19/20 10/19/20 10/19/20 20:04 20:06 20:09 Temperature 98.1 F Pulse Rate 88 100 H Respiratory 18 Rate Blood Pressure 130/86 O2 Sat by Pulse 98 98 Oximetry 10/19/20 10/19/20 10/19/20 20:14 20:19 20:24 Temperature Pulse Rate 86 89 93 H Respiratory Rate Blood Pressure O2 Sat by Pulse 98 98 98 Oximetry 10/19/20 10/19/20 10/19/20 20:29 20:30 20:34 Temperature Pulse Rate 84 79 95 H Respiratory Rate Blood Pressure 121/73 O2 Sat by Pulse 99 99 Oximetry 10/19/20 10/19/20 10/19/20 20:39 20:44 20:49 Temperature Pulse Rate 83 88 83 Respiratory Rate Blood Pressure O2 Sat by Pulse 98 97 98 Oximetry 10/19/20 10/19/20 10/19/20 20:54 20:59 21:00 Temperature Pulse Rate 81 82 100 H Respiratory Rate Blood Pressure 118/69 O2 Sat by Pulse 98 97 Oximetry 10/19/20 10/19/20 10/19/20 21:04 21:09 21:14 Temperature Pulse Rate 79 76 92 H Respiratory Rate Blood Pressure O2 Sat by Pulse 98 98 98 Oximetry 10/19/20 10/19/20 10/19/20 21:19 21:24 21:29 Temperature Pulse Rate 76 74 74 Respiratory Rate Blood Pressure O2 Sat by Pulse 99 98 98 Oximetry 10/19/20 10/19/20 10/19/20 21:30 21:34 21:39 Temperature Pulse Rate 74 76 78 Respiratory Rate Blood Pressure 122/72 O2 Sat by Pulse 98 98 Oximetry 10/19/20 10/19/20 10/19/20 21:44 21:49 21:54 Temperature Pulse Rate 78 80 79 Respiratory Rate Blood Pressure O2 Sat by Pulse 98 100 100 Oximetry 10/19/20 10/19/20 10/19/20 21:59 22:00 22:04 Temperature Pulse Rate 77 84 78 Respiratory Rate Blood Pressure 118/75 O2 Sat by Pulse 99 98 Oximetry 10/19/20 10/19/20 10/19/20 22:09 22:14 22:19 Temperature Pulse Rate 79 73 81 Respiratory Rate Blood Pressure O2 Sat by Pulse 98 98 98 Oximetry 10/19/20 10/19/20 10/19/20 22:24 22:29 22:30 Temperature Pulse Rate 77 77 87 Respiratory Rate Blood Pressure 135/80 O2 Sat by Pulse 98 97 Oximetry 10/19/20 10/19/20 10/19/20 22:34 22:39 22:44 Temperature Pulse Rate 77 79 81 Respiratory Rate Blood Pressure O2 Sat by Pulse 97 98 98 Oximetry 10/19/20 10/19/20 10/19/20 22:49 22:54 22:59 Temperature Pulse Rate 74 75 77 Respiratory Rate Blood Pressure O2 Sat by Pulse 98 98 97 Oximetry 10/19/20 10/19/20 10/19/20 23:00 23:04 23:09 Temperature Pulse Rate 93 H 76 80 Respiratory Rate Blood Pressure 150/79 O2 Sat by Pulse 94 97 96 Oximetry 10/19/20 10/19/20 10/19/20 23:14 23:19 23:24 Temperature Pulse Rate 77 82 91 H Respiratory Rate Blood Pressure O2 Sat by Pulse 97 98 98 Oximetry 10/19/20 10/19/20 10/19/20 23:29 23:31 23:34 Temperature Pulse Rate 91 H 73 85 Respiratory Rate Blood Pressure 133/74 O2 Sat by Pulse 96 98 Oximetry 10/19/20 10/19/20 10/19/20 23:39 23:44 23:49 Temperature Pulse Rate 88 86 97 H Respiratory Rate Blood Pressure O2 Sat by Pulse 98 97 97 Oximetry 10/19/20 10/19/20 10/20/20 23:54 23:59 00:00 Temperature Pulse Rate 106 H 83 81 Respiratory Rate Blood Pressure 129/83 O2 Sat by Pulse 97 99 Oximetry 10/20/20 10/20/20 10/20/20 00:04 00:09 00:14 Temperature Pulse Rate 83 86 81 Respiratory Rate Blood Pressure O2 Sat by Pulse 97 97 97 Oximetry 10/20/20 10/20/20 10/20/20 00:19 00:24 00:29 Temperature Pulse Rate 78 92 H 85 Respiratory Rate Blood Pressure O2 Sat by Pulse 97 98 97 Oximetry 10/20/20 10/20/20 10/20/20 00:30 00:34 00:39 Temperature Pulse Rate 75 88 96 H Respiratory Rate Blood Pressure 140/86 O2 Sat by Pulse 97 99 Oximetry 10/20/20 10/20/20 10/20/20 00:44 00:45 00:49 Temperature 98.4 F Pulse Rate 69 79 Respiratory 18 Rate Blood Pressure O2 Sat by Pulse 99 99 Oximetry 10/20/20 10/20/20 10/20/20 00:54 00:59 01:01 Temperature Pulse Rate 77 77 73 Respiratory Rate Blood Pressure 109/59 O2 Sat by Pulse 98 97 Oximetry 10/20/20 10/20/20 10/20/20 01:04 01:09 01:14 Temperature Pulse Rate 76 74 71 Respiratory Rate Blood Pressure O2 Sat by Pulse 97 97 97 Oximetry 10/20/20 10/20/20 10/20/20 01:19 01:24 01:29 Temperature Pulse Rate 72 72 73 Respiratory Rate Blood Pressure O2 Sat by Pulse 97 97 97 Oximetry 10/20/20 10/20/20 10/20/20 01:31 01:34 01:39 Temperature Pulse Rate 70 69 71 Respiratory Rate Blood Pressure 103/56 O2 Sat by Pulse 97 97 Oximetry 10/20/20 10/20/20 10/20/20 01:44 01:49 01:54 Temperature Pulse Rate 72 75 84 Respiratory Rate Blood Pressure O2 Sat by Pulse 97 97 97 Oximetry 10/20/20 10/20/20 10/20/20 01:59 02:01 02:04 Temperature Pulse Rate 70 96 H 67 Respiratory Rate Blood Pressure 114/63 O2 Sat by Pulse 98 98 Oximetry 10/20/20 10/20/20 10/20/20 02:09 02:14 02:19 Temperature Pulse Rate 65 66 69 Respiratory Rate Blood Pressure O2 Sat by Pulse 98 98 98 Oximetry 10/20/20 10/20/20 10/20/20 02:24 02:29 02:31 Temperature Pulse Rate 99 H 76 82 Respiratory Rate Blood Pressure 128/74 O2 Sat by Pulse 99 99 Oximetry 10/20/20 10/20/20 10/20/20 02:34 02:39 02:44 Temperature Pulse Rate 85 83 78 Respiratory Rate Blood Pressure O2 Sat by Pulse 99 99 99 Oximetry 10/20/20 10/20/20 10/20/20 02:49 02:54 02:59 Temperature Pulse Rate 77 79 73 Respiratory Rate Blood Pressure O2 Sat by Pulse 100 99 99 Oximetry 10/20/20 10/20/20 10/20/20 03:00 03:04 03:09 Temperature Pulse Rate 71 73 80 Respiratory Rate Blood Pressure 126/74 O2 Sat by Pulse 99 99 Oximetry 10/20/20 10/20/20 10/20/20 03:14 03:19 03:24 Temperature Pulse Rate 73 70 78 Respiratory Rate Blood Pressure O2 Sat by Pulse 98 98 98 Oximetry 10/20/20 10/20/20 10/20/20 03:29 03:30 03:34 Temperature Pulse Rate 65 71 67 Respiratory Rate Blood Pressure 115/63 O2 Sat by Pulse 100 98 Oximetry 10/20/20 10/20/20 10/20/20 03:39 03:44 03:49 Temperature Pulse Rate 69 68 65 Respiratory Rate Blood Pressure O2 Sat by Pulse 98 98 97 Oximetry 10/20/20 10/20/20 10/20/20 03:54 03:59 04:00 Temperature Pulse Rate 67 64 61 Respiratory Rate Blood Pressure 111/56 O2 Sat by Pulse 98 98 Oximetry 10/20/20 10/20/20 10/20/20 04:04 04:09 04:14 Temperature Pulse Rate 66 64 63 Respiratory Rate Blood Pressure O2 Sat by Pulse 98 98 98 Oximetry 10/20/20 10/20/20 10/20/20 04:19 04:24 04:29 Temperature Pulse Rate 66 68 73 Respiratory Rate Blood Pressure O2 Sat by Pulse 98 98 97 Oximetry 10/20/20 10/20/20 10/20/20 04:30 04:34 04:39 Temperature Pulse Rate 65 70 70 Respiratory Rate Blood Pressure 111/60 O2 Sat by Pulse 97 98 Oximetry 10/20/20 10/20/20 10/20/20 04:44 04:49 04:54 Temperature Pulse Rate 67 70 70 Respiratory Rate Blood Pressure O2 Sat by Pulse 98 98 98 Oximetry 10/20/20 10/20/20 10/20/20 04:59 05:00 05:04 Temperature Pulse Rate 67 67 67 Respiratory Rate Blood Pressure 105/60 O2 Sat by Pulse 98 98 Oximetry 10/20/20 10/20/20 10/20/20 05:09 05:14 05:19 Temperature Pulse Rate 65 76 90 Respiratory Rate Blood Pressure O2 Sat by Pulse 98 98 98 Oximetry 10/20/20 10/20/20 10/20/20 05:24 05:29 05:30 Temperature Pulse Rate 66 61 63 Respiratory Rate Blood Pressure 111/59 O2 Sat by Pulse 98 98 Oximetry 10/20/20 10/20/20 10/20/20 05:34 05:39 05:44 Temperature Pulse Rate 76 69 72 Respiratory Rate Blood Pressure O2 Sat by Pulse 99 99 99 Oximetry - Labs Labs: Abnormal Labs 10/17/20 10/17/20 10/17/20 23:35 23:35 23:35 WBC 16.4 H Magnesium Lactate Dehydrogenase 199 H Ur Specific [place] 1.002 L Coronavirus (PCR) 10/19/20 10/19/20 10/19/20 00:59 07:08 09:20 WBC Magnesium 5.80 H 5.80 H Lactate Dehydrogenase Ur Specific [place] Coronavirus (PCR) Positive A 10/19/20 10/19/20 10/20/20 13:07 19:24 00:25 WBC Magnesium 6.10 H 6.00 H 6.10 H Lactate Dehydrogenase Ur Specific [place] Coronavirus (PCR) Laboratory Results - last 24 hr 10/19/20 10/19/20 10/19/20 07:08 09:20 13:07 Magnesium 5.80 H 6.10 H Coronavirus (PCR) Positive A 10/19/20 10/20/20 19:24 00:25 Magnesium 6.00 H 6.10 H Coronavirus (PCR)
[2020-10-20] MEDS: PANTOPRAZOLE 40 MG INJ IV SCH (12:05)
--- NOTE | 2020-10-20 14:18 | Consultation ---
Consult Note - Parent Education I met with parent(s) and discussed the following:: Need for NICU admission, Poss ible need for intubation and surfactant or other resp support, Possible need for IV fluids/TPN and IV antibiotics, Possible need for umbilical lines, Importance of providing breast milk & encouraged pumping aft delivery, Slow feeding advancement and monitoring of tolerance. NG/OG feeds Parent(s) demonstrated understanding of all the information:: Yes Additional Comment: 24 yo mother who presented with elevated BPs. Received Decadron and magnesium, A+, rubella immune, syphillis nonreactive, HIV negative, HepB negative, GBS + and treated several times with Ampicillin. AROM 10/19~0955. Mother asymptomatic COVID + (reports having a test on MonOctober 14 rapid and PCR that were negative). Discussed no visiting for mother or FOB. Mother questioned the possibility of retest or confirmation. I stated I would speak with management and get back with her to confirm testing as well as visitation guidelines. Spoke with Tam Navarrete, Director [facility] and she will look into confirmatory test with the lab. Assessment and Plan - Assessment Gestation:: 34 Baby's gender: Male - Plan Plan: Agree with Mag & steroids Will attend delivery Please call NICU with questions
[2020-10-20] MEDS ORDERED: NALOXONE 2 MG/2 ML INJ IV PRN (16:00)
[2020-10-20] MEDS ORDERED: ePHEDrine SULFATE 50 MG/1 ML INJ IV PRN (16:00)
[2020-10-20] MEDS ORDERED: fentaNYL-BUPIV 2 MCG/ML-0.125% 200 MCG/100 ML BAG EPIDURAL SCH (16:00)
--- NOTE | 2020-10-20 16:04 | Anesthesia Consultation ---
Anesthesia Consult and Med Hx Date of service: 10/20/20 - Airway Anesthetic Teeth Evaluation: Poor ROM Head & Neck: Adequate Mental/Hyoid Distance: Adequate Mallampati Class: Class II Intubation Access Assessment: Probably Good - Pulmonary Exam CTA: Yes - Cardiac Exam Cardiac Exam: RRR - Pre-Operative Health Status ASA Pre-Surgery Classification: ASA2 Proposed Anesthetic Plan: Epidural - Pre-Anesthesia Comment Pre-Anesthesia Comments: Ear surgery. Hard of Hearing since childhood L>R. Breast biopsy - Pulmonary Hx Smoking: Yes Hx Asthma: No Hx Respiratory Symptoms: No (hx of hyperventilation and fainting when anxious) SOB: No COPD: No Home Oxygen Therapy: No Hx Pneumonia: No Hx Sleep Apnea: No - Cardiovascular System Hx Hypertension: Yes Hx Coronary Artery Disease: No Hx Heart Attack/AMI: No Hx Angina: No Hx Percutaneous Transluminal Coronary Angioplasty (PTCA): No Hx Cardia Arrhythmia: No Hx Pacemaker: No Hx Internal Defibrillator: No Hx Valvular Heart Disease: No Hx Heart Murmur: No Hx Peripheral Vascular Disease: Yes (Raynaud's Phenomenon occured during epidural placement) - Central Nervous System Hx Neuromuscular Disorder: No Hx Seizures: No CVA: No Hx Back Pain: No Hx Psychiatric Problems: No - Gastrointestinal Hx Ulcer: No Hx Gastroesophageal Reflux Disease: Yes - Endocrine Hx Renal Disease: No Hx End Stage Renal Disease: No Hx Cirrhosis: No Hx Liver Disease: No Hx Insulin Dependent Diabetes: No Hx Non-Insulin Dependent Diabetes: No Hx Thyroid Disease: No Hx Hypothyroidism: No Hx Hyperthyroidism: No - Hematic Hx Anemia: No Hx Sickle Cell Disease: No - Other Systems Hx Alcohol Use: No Hx Substance Use: No Hx Cancer: No Hx Obesity: Yes
--- NOTE | 2020-10-20 16:21 | Progress Note ---
Labor Epidural - Labor Epidural Start Time: 15:39 Stop Time: 15:43 Performed by:: LIYAH FLETCHER Procedure: Patient is requesting a laboring epidural for laboring pain. Patient IDed, H&P reviewed, all questions and concerns were answered, and consent was signed. Timeout was performed at bedside. Patient in sitting position. Sterile prep and drape was performed. [3] ml of 1% lidocaine skin wheal at L[4]- L [5]. 18- gauge Tuohy epidural needle was advanced to loss of resistance with saline technique 6cm. Single dural perforation via 27 guage spinal needle placed through the shaft of Epidural needle. Positive CSF via spinal needle. Negative CSF negative blood via Epidural needle. Epidural catheter advanced to [10] centimeters. [NEGATIVE] Aspiration [NEGATIVE] test dose. Negative Paresthesia. Sterile dressing applied. Patient tolerated procedure.
--- NOTE | 2020-10-20 16:53 | Procedure Note ---
OB Delivery Note - Delivery Date of Delivery: 10/20/20 Surgeon: EMI KENNEDY Estimated blood loss: 200cc - Vaginal Delivery position: OA Intrapartum events: preeclampsia Delivery induction: misoprostol Delivery augmentation: rupture of membranes, pitocin Route of delivery: Delivery placenta: spontaneous Delivery cord: 3 umbilical vessels Episiotomy: none Delivery laceration: none Anesthesia: epidural Delivery comments: Patient pushed to deliver,over an intact perineum, a viable male with weight 2056gms and 8/9. Position ALESHA, loose nuchal cord reduced prior to delivery. Spontaneous cry at delivery. Delivery of the anterior shoulder atraumatic, remainder of delivery uncomplicated. Cord clamped cut and baby handed to waiting GILDA team. Spontaneous delivery of an intact placenta with three-vessel cord. Inspection of the perineum cervix and vagina revealed no lacerations. Firm fundus, EBL 200ml. All sponge needle and instrument counts correct x2. Mom and baby stable to . Lien Kennedy MD
[2020-10-20] MEDS ORDERED: ONDANSETRON 4 MG/2 ML INJ IV PRN (17:30)
[2020-10-20] MEDS ORDERED: LANOLIN/ZINC/DIMETHICONE (LANSINOH) 7 GM TP PRN (17:30)
[2020-10-20] MEDS ORDERED: MAGNESIUM HYDROXIDE (MOM) ORAL LIQD UDC PO PRN (17:30)
[2020-10-20] MEDS ORDERED: WITCH HAZEL/ GLYCERIN PAD TP PRN (17:30)
[2020-10-20] MEDS ORDERED: diphenhydrAMINE 25 MG CAP PO PRN (17:30)
[2020-10-20] MEDS ORDERED: PROMETHAZINE 25 MG RECT SUPP PR PRN (17:30)
[2020-10-20] MEDS ORDERED: KETOROLAC 30 MG/1 ML INJ IV PRN (17:30)
[2020-10-20] MEDS ORDERED: HYDROcodone/ACETAMINOPHEN 5-325 MG TAB PO PRN (17:30)
[2020-10-20] MEDS ORDERED: ACETAMINOPHEN 325 MG TAB PO PRN (17:30)
[2020-10-20] MEDS ORDERED: PROMETHAZINE 25 MG TAB PO PRN (17:30)
[2020-10-21] MEDS: IBUPROFEN 600 MG TAB PO SCH ×2 (04:16→11:53)
[2020-10-21] MEDS: PANTOPRAZOLE 40 MG INJ IV SCH (10:11)
--- NOTE | 2020-10-21 13:14 | Progress Note ---
Assessment and Plan - Patient Problems (1) Vaginal delivery Current Visit: Yes Status: Acute Plan to address problem: Care per routine -breast/bottle feeding (pump in room) (2) Severe preeclampsia Current Visit: Yes Status: Acute Plan to address problem: continue magnesium for seizure prophylaxis -no signs/symptoms of mag toxicity -adequate UOP -continue to monitor BPs, add IV/PO antihypertensives prn -continue Mag 24 hrs PP Subjective - Subjective Principal diagnosis: Vaginal delivery, PreEclampsia with SF Interval history: Magnesium initiated for seizure prophylaxis. Patient reports: appetite normal, voiding normally, pain well controlled, other ([place] HUGHES,RUQ pain, vision changes) : doing well Objective - Vital Signs Latest vital signs: Vital Signs Temp Pulse Resp BP Pulse Ox 10/21/20 13:11 63 175/128 10/21/20 13:09 58 L 99 10/21/20 13:04 65 181/84 100 10/21/20 12:59 63 100 10/21/20 12:54 60 100 10/21/20 12:49 71 99 10/21/20 12:44 58 L 99 10/21/20 12:39 63 99 10/21/20 12:34 62 163/74 100 10/21/20 12:29 64 99 10/21/20 12:24 63 100 10/21/20 12:19 59 L 100 10/21/20 12:14 61 100 10/21/20 12:09 62 100 10/21/20 12:04 64 148/104 99 10/21/20 11:59 72 99 10/21/20 11:54 64 99 10/21/20 11:49 63 99 10/21/20 11:48 97.5 F L 20 10/21/20 11:44 72 99 10/21/20 11:39 82 98 10/21/20 11:34 57 L 98 10/21/20 11:33 60 135/60 10/21/20 11:29 61 98 10/21/20 11:24 58 L 99 10/21/20 11:19 66 99 10/21/20 11:14 64 98 10/21/20 11:09 71 98 10/21/20 11:04 56 L 99 10/21/20 11:03 54 L 133/60 10/21/20 10:58 79 100 10/21/20 10:53 69 100 10/21/20 10:48 58 L 98 10/21/20 10:43 56 L 99 10/21/20 10:38 57 L 99 10/21/20 10:37 52 L 140/72 10/21/20 10:33 54 L 151/74 98 10/21/20 10:28 63 100 10/21/20 10:23 65 100 10/21/20 10:18 60 99 10/21/20 10:13 90 98 10/21/20 10:09 65 149/80 10/21/20 10:08 66 100 10/21/20 10:04 56 L 149/80 10/21/20 10:03 57 L 96 10/21/20 09:58 60 99 10/21/20 09:53 60 100 10/21/20 09:48 56 L 99 10/21/20 09:43 66 98 10/21/20 09:38 65 99 10/21/20 09:33 60 145/74 98 10/21/20 09:28 59 L 99 10/21/20 09:23 58 L 98 10/21/20 09:18 64 100 10/21/20 09:13 61 99 10/21/20 09:08 63 99 10/21/20 09:03 59 L 147/70 98 10/21/20 08:58 58 L 99 10/21/20 08:53 52 L 100 10/21/20 08:48 59 L 99 10/21/20 08:43 56 L 99 10/21/20 08:38 62 99 10/21/20 08:33 57 L 148/81 99 10/21/20 08:28 59 L 100 10/21/20 08:26 71 154/80 10/21/20 08:23 58 L 99 10/21/20 08:18 66 99 10/21/20 08:13 64 166/95 99 10/21/20 08:08 55 L 99 10/21/20 08:04 55 L 169/86 10/21/20 08:03 56 L 98 10/21/20 07:58 57 L 99 10/21/20 07:53 63 98 10/21/20 07:48 61 99 10/21/20 07:43 63 100 10/21/20 07:38 53 L 98 10/21/20 07:33 59 L 148/76 99 10/21/20 07:29 98.1 F 16 10/21/20 07:28 60 148/73 100 10/21/20 07:23 58 L 99 10/21/20 07:18 67 98 10/21/20 07:13 53 L 98 10/21/20 07:08 58 L 99 10/21/20 07:03 54 L 135/63 98 10/21/20 06:58 55 L 98 10/21/20 06:53 53 L 99 10/21/20 06:48 57 L 99 10/21/20 06:43 58 L 100 10/21/20 06:38 68 100 10/21/20 06:33 67 143/86 100 10/21/20 06:28 98.3 F 67 99 10/21/20 06:23 58 L 99 10/21/20 06:18 61 100 10/21/20 06:13 55 L 99 10/21/20 06:08 56 L 99 10/21/20 06:04 78 107/84 10/21/20 06:03 44 L 98 10/21/20 05:58 56 L 98 10/21/20 05:53 56 L 98 10/21/20 05:48 56 L 98 10/21/20 05:43 55 L 98 10/21/20 05:38 55 L 98 10/21/20 05:33 56 L 108/62 97 10/21/20 05:28 55 L 98 10/21/20 05:23 53 L 97 10/21/20 05:18 54 L 98 10/21/20 05:13 54 L 98 10/21/20 05:08 54 L 99 10/21/20 05:04 58 L 110/55 10/21/20 05:03 56 L 99 10/21/20 04:58 55 L 98 10/21/20 04:53 55 L 98 10/21/20 04:48 52 L 98 10/21/20 04:43 54 L 99 10/21/20 04:38 60 99 10/21/20 04:33 60 128/77 100 10/21/20 04:28 57 L 100 10/21/20 04:23 70 100 10/21/20 04:18 64 100 10/21/20 04:13 65 97 10/21/20 04:08 54 L 98 10/21/20 04:03 54 L 107/58 98 10/21/20 03:58 53 L 98 10/21/20 03:53 52 L 98 10/21/20 03:48 52 L 98 10/21/20 03:43 54 L 99 10/21/20 03:38 70 97 10/21/20 03:34 64 150/83 10/21/20 03:33 68 99 10/21/20 03:28 55 L 98 10/21/20 03:23 57 L 98 10/21/20 03:18 55 L 98 10/21/20 03:13 56 L 99 10/21/20 03:08 57 L 99 10/21/20 03:03 56 L 135/69 99 10/21/20 02:58 60 99 10/21/20 02:53 62 98 10/21/20 02:48 74 99 10/21/20 02:43 57 L 99 10/21/20 02:38 56 L 100 10/21/20 02:33 79 137/81 99 10/21/20 02:28 72 97 10/21/20 02:23 64 98 10/21/20 02:18 73 99 10/21/20 02:13 58 L 99 10/21/20 02:08 59 L 99 10/21/20 02:03 60 134/78 99 10/21/20 01:58 60 99 10/21/20 01:53 61 99 10/21/20 01:48 59 L 98 10/21/20 01:43 60 98 10/21/20 01:38 59 L 98 10/21/20 01:33 57 L 138/75 99 10/21/20 01:28 57 L 100 10/21/20 01:23 62 98 10/21/20 01:18 62 98 10/21/20 01:13 62 98 10/21/20 01:08 58 L 98 10/21/20 01:03 59 L 134/78 99 10/21/20 00:58 58 L 99 10/21/20 00:53 59 L 99 10/21/20 00:48 70 100 10/21/20 00:43 59 L 100 10/21/20 00:38 60 98 10/21/20 00:34 59 L 149/81 10/21/20 00:33 60 99 10/21/20 00:28 62 98 10/21/20 00:23 58 L 99 10/21/20 00:18 62 99 10/21/20 00:13 60 100 10/21/20 00:12 66 143/81 10/21/20 00:08 62 100 10/21/20 00:04 67 164/95 10/21/20 00:03 68 100 10/21/20 00:00 97.7 F 10/20/20 23:58 75 100 10/20/20 23:53 58 L 100 10/20/20 23:48 72 150/85 100 10/20/20 23:43 58 L 98 10/20/20 23:38 57 L 98 10/20/20 23:34 54 L 150/85 10/20/20 23:33 56 L 99 10/20/20 23:28 58 L 100 10/20/20 23:23 63 100 10/20/20 23:18 64 99 10/20/20 23:13 62 100 10/20/20 23:08 59 L 99 10/20/20 23:04 57 L 158/82 10/20/20 23:03 55 L 100 10/20/20 22:58 63 99 10/20/20 22:53 63 100 10/20/20 22:48 54 L 100 10/20/20 22:43 59 L 100 10/20/20 22:38 58 L 100 10/20/20 22:33 58 L 149/72 100 10/20/20 22:28 68 100 10/20/20 22:23 72 97 10/20/20 22:18 62 100 10/20/20 22:13 60 99 10/20/20 22:08 51 L 99 10/20/20 22:03 62 99 10/20/20 22:02 61 152/78 10/20/20 22:00 20 100 10/20/20 21:59 59 L 172/87 10/20/20 21:58 58 L 99 10/20/20 21:38 62 159/93 10/20/20 21:35 62 99 10/20/20 21:30 66 100 10/20/20 21:28 68 165/89 10/20/20 21:25 61 99 10/20/20 21:20 65 100 10/20/20 21:15 74 100 10/20/20 21:13 60 155/90 10/20/20 21:11 61 154/88 10/20/20 21:10 62 100 10/20/20 21:05 68 100 10/20/20 21:00 61 100 10/20/20 20:58 65 170/87 10/20/20 20:55 57 L 100 10/20/20 20:50 63 99 10/20/20 20:45 66 99 10/20/20 20:43 70 137/79 10/20/20 20:40 59 L 100 10/20/20 20:35 61 100 10/20/20 20:30 63 100 10/20/20 20:28 62 136/81 10/20/20 20:25 63 98 10/20/20 20:20 64 99 10/20/20 20:15 58 L 99 10/20/20 20:13 56 L 139/80 10/20/20 20:10 57 L 99 10/20/20 20:05 64 100 10/20/20 20:00 65 99 10/20/20 19:58 61 137/82 10/20/20 19:55 76 99 10/20/20 19:50 64 99 10/20/20 19:45 66 100 10/20/20 19:43 63 135/82 10/20/20 19:40 63 141/85 100 10/20/20 19:36 97.9 F 10/20/20 19:35 74 100 10/20/20 19:30 69 100 10/20/20 19:28 68 140/84 10/20/20 19:25 69 99 10/20/20 19:20 57 L 100 10/20/20 19:15 60 100 10/20/20 19:13 57 L 137/79 10/20/20 19:10 64 100 10/20/20 19:05 64 100 10/20/20 19:00 71 100 10/20/20 18:58 69 145/79 10/20/20 18:55 69 100 10/20/20 18:50 69 100 10/20/20 18:45 71 100 10/20/20 18:43 69 144/81 10/20/20 18:40 69 100 10/20/20 18:35 71 99 10/20/20 18:30 72 100 10/20/20 18:28 64 139/77 10/20/20 18:25 63 139/76 100 10/20/20 18:20 61 100 10/20/20 18:15 64 100 10/20/20 18:13 63 149/88 10/20/20 18:10 69 100 10/20/20 18:05 59 L 100 10/20/20 18:00 60 100 10/20/20 17:58 58 L 152/82 10/20/20 17:55 61 100 10/20/20 17:50 69 100 10/20/20 17:45 59 L 100 10/20/20 17:43 53 L 138/77 10/20/20 17:40 59 L 100 10/20/20 17:35 65 99 10/20/20 17:30 53 L 99 10/20/20 17:28 57 L 134/76 10/20/20 17:25 50 L 99 10/20/20 17:20 60 99 10/20/20 17:15 68 100 10/20/20 17:13 62 144/72 10/20/20 17:10 60 100 10/20/20 17:05 56 L 98 10/20/20 17:00 71 97 10/20/20 16:58 65 131/62 10/20/20 16:55 60 99 10/20/20 16:53 71 143/64 10/20/20 16:50 98.3 F 97 H 15 100 10/20/20 16:45 76 100 10/20/20 16:44 80 125/94 10/20/20 16:40 78 100 10/20/20 16:35 90 100 10/20/20 16:33 89 89 10/20/20 16:30 67 131/69 100 10/20/20 16:25 93 H 100 10/20/20 16:20 76 100 10/20/20 16:16 84 103/69 10/20/20 16:15 88 100 10/20/20 16:14 93 H 102/66 10/20/20 16:10 66 100 10/20/20 16:05 62 100 10/20/20 16:00 63 100 10/20/20 15:55 75 120/67 100 10/20/20 15:51 77 119/76 10/20/20 15:50 79 100 10/20/20 15:48 96 H 128/85 10/20/20 15:45 86 100 10/20/20 15:40 96 H 100 10/20/20 15:35 99 H 100 10/20/20 15:31 86 135/65 10/20/20 15:30 89 99 10/20/20 15:25 98 H 99 10/20/20 15:20 89 100 10/20/20 15:15 76 100 10/20/20 15:13 82 126/69 10/20/20 15:10 75 99 10/20/20 15:05 61 98 10/20/20 15:01 75 160/91 10/20/20 15:00 79 100 10/20/20 14:55 69 99 10/20/20 14:50 73 100 10/20/20 14:45 75 99 10/20/20 14:40 59 L 99 10/20/20 14:35 77 99 10/20/20 14:32 63 157/82 10/20/20 14:30 70 96 10/20/20 14:25 57 L 97 10/20/20 14:20 75 100 10/20/20 14:16 79 142/66 10/20/20 14:15 59 L 99 10/20/20 14:10 63 98 10/20/20 14:05 75 100 10/20/20 14:02 56 L 161/78 10/20/20 14:00 74 100 10/20/20 13:55 62 97 10/20/20 13:50 59 L 96 10/20/20 13:46 68 148/78 10/20/20 13:45 74 147/76 98 10/20/20 13:40 78 99 10/20/20 13:35 71 98 10/20/20 13:31 69 163/72 10/20/20 13:30 81 99 10/20/20 13:29 66 137/67 10/20/20 13:25 75 97 10/20/20 13:20 73 17 99 10/20/20 13:19 81 160/88 10/20/20 13:15 62 96 Intake and Output 10/20/20 10/21/20 10/21/20 22:59 06:59 14:59 Intake Total 166.833 Output Total 1044 229 750 Balance -4522.013 -900 -750 Intake: IV 166.833 PITOCin/NS 30 UNIT/500ML 1.833 30 units In 500 ml @ 2 mls/hr IV TITR KURTIS Rx#: [id number] PITOCin/NS 30 UNIT/500ML 165 30 units In 500 ml @ 40 mls/hr IV TITR KURTIS Rx#: [id number] Output: Urine 2525 900 750 Indwelling Catheter 2525 900 625 Uretheral (Delgado) 125 Other: Total, Output Amount 300 50 150 Estimated Blood Loss 200 - Exam Breasts: Present: deferred Cardiovascular: Present: Regular rate Lungs: Present: Clear to auscultation Abdomen: Present: normal appearance, soft, normal bowel sounds. Absent: distention, tenderness Uterus: Present: normal, firm Extremities: Present: normal - Labs Labs: Abnormal lab results 10/20/20 10/21/20 10/21/20 Range/Units 18:02 00:42 08:55 Magnesium 5.00 H 5.20 H 4.20 H (1.7-2.3) mg/dL
[2020-10-21 14:39] LABS: Hematocrit 35.1 % (30.3-42.9); Hemoglobin 11.5 gm/dl (10.1-14.3)
[2020-10-21] MEDS ORDERED: NIFEdipine*For Tocolysis only* 10 MG CAPSULE PO ONE (17:50)
--- NOTE | 2020-10-21 21:09 | Post Anesthesia Evaluation ---
- Post Anesthesia Evaluation Patient Participated: Yes Airway Patent: Yes Stable Respiratory Function: Yes Nausea/Vomiting: No Temp > 96.8F: Yes Pain Manageable: Yes Adequeate Hydration: Yes Anesthesia Complications: No Block Receding Appropriately: Yes Patient on Ventilator: No
[2020-10-22] MEDS: IBUPROFEN 600 MG TAB PO SCH ×3 (00:15→13:13)
--- NOTE | 2020-10-22 07:52 | Progress Note ---
Assessment and Plan - Patient Problems (1) Preeclampsia in period Current Visit: Yes Status: Acute Plan to address problem: patient is improved not demonstrating any sequela from covid (2) Vaginal delivery Current Visit: Yes Status: Acute Subjective - Subjective Date of service: 10/22/20 Principal diagnosis: Vaginal delivery, PreEclampsia with SF Interval history: Patient states her room was cold last night. Pain well controlled. Blood pressures are normalizing. Patient has completed magnesium therapy Patient reports: appetite normal, voiding normally, pain well controlled [place]: doing well Objective - Vital Signs Latest vital signs: Vital Signs Temp Pulse Resp BP BP Pulse Ox 10/22/20 04:30 98.6 F 78 16 125/76 10/22/20 00:15 20 10/22/20 00:00 98.6 F 69 16 145/82 10/21/20 21:51 75 134/80 10/21/20 20:10 98.1 F 88 18 134/82 98 10/21/20 19:02 98.5 F 90 20 123/72 10/21/20 19:00 82 124/70 10/21/20 18:42 73 142/84 10/21/20 18:29 75 99 10/21/20 18:24 71 99 10/21/20 18:23 71 156/81 10/21/20 18:19 78 99 10/21/20 18:14 70 100 10/21/20 18:09 69 99 10/21/20 18:04 66 100 10/21/20 17:59 70 100 10/21/20 17:54 69 99 10/21/20 17:49 64 100 10/21/20 17:44 69 100 10/21/20 17:39 63 165/94 100 10/21/20 17:34 70 99 10/21/20 17:33 76 164/91 10/21/20 17:29 81 99 10/21/20 17:25 59 L 154/87 10/21/20 17:24 61 99 10/21/20 17:19 80 99 10/21/20 17:14 63 100 10/21/20 17:09 66 98 10/21/20 17:07 62 164/79 10/21/20 17:04 71 200/101 98 10/21/20 16:59 70 100 10/21/20 16:54 67 100 10/21/20 16:49 80 100 10/21/20 16:44 71 100 10/21/20 16:39 79 100 10/21/20 16:34 67 100 10/21/20 16:33 63 153/94 10/21/20 16:29 63 100 10/21/20 16:24 68 99 10/21/20 16:19 64 100 10/21/20 16:17 73 140/88 10/21/20 16:14 67 100 10/21/20 16:10 63 151/90 10/21/20 16:09 67 100 10/21/20 16:08 64 166/97 10/21/20 16:04 62 164/86 100 10/21/20 15:59 73 99 10/21/20 15:54 61 99 10/21/20 15:49 56 L 99 10/21/20 15:44 76 100 10/21/20 15:39 67 100 10/21/20 15:34 69 152/85 100 10/21/20 15:29 66 100 10/21/20 15:24 62 100 10/21/20 15:19 73 99 10/21/20 15:14 61 99 10/21/20 15:09 65 99 10/21/20 15:04 71 161/72 100 10/21/20 14:59 64 99 10/21/20 14:54 65 99 10/21/20 14:49 67 99 10/21/20 14:44 63 100 10/21/20 14:39 65 100 10/21/20 14:34 63 100 10/21/20 14:33 58 L 138/83 10/21/20 14:29 70 100 10/21/20 14:24 73 100 10/21/20 14:19 74 100 10/21/20 14:14 70 99 10/21/20 14:09 70 99 10/21/20 14:04 76 160/77 99 10/21/20 13:59 68 99 10/21/20 13:54 71 100 10/21/20 13:49 72 100 10/21/20 13:44 72 100 10/21/20 13:39 70 99 10/21/20 13:38 68 157/74 10/21/20 13:34 68 168/77 100 10/21/20 13:29 70 99 10/21/20 13:24 79 99 10/21/20 13:19 71 98 10/21/20 13:16 64 156/75 10/21/20 13:14 72 100 10/21/20 13:11 63 175/128 10/21/20 13:09 58 L 99 10/21/20 13:04 65 181/84 100 10/21/20 12:59 63 100 10/21/20 12:54 60 100 10/21/20 12:49 71 99 10/21/20 12:44 58 L 99 10/21/20 12:39 63 99 10/21/20 12:34 62 163/74 100 10/21/20 12:29 64 99 10/21/20 12:24 63 100 10/21/20 12:19 59 L 100 10/21/20 12:14 61 100 10/21/20 12:09 62 100 10/21/20 12:04 64 148/104 99 10/21/20 11:59 72 99 10/21/20 11:54 64 99 10/21/20 11:49 63 99 10/21/20 11:48 97.5 F L 20 10/21/20 11:44 72 99 10/21/20 11:39 82 98 10/21/20 11:34 57 L 98 10/21/20 11:33 60 135/60 10/21/20 11:29 61 98 10/21/20 11:24 58 L 99 10/21/20 11:19 66 99 10/21/20 11:14 64 98 10/21/20 11:09 71 98 10/21/20 11:04 56 L 99 10/21/20 11:03 54 L 133/60 10/21/20 10:58 79 100 10/21/20 10:53 69 100 10/21/20 10:48 58 L 98 10/21/20 10:43 56 L 99 10/21/20 10:38 57 L 99 10/21/20 10:37 52 L 140/72 10/21/20 10:33 54 L 151/74 98 10/21/20 10:28 63 100 10/21/20 10:23 65 100 10/21/20 10:18 60 99 10/21/20 10:13 90 98 10/21/20 10:09 65 149/80 10/21/20 10:08 66 100 10/21/20 10:04 56 L 149/80 10/21/20 10:03 57 L 96 10/21/20 09:58 60 99 10/21/20 09:53 60 100 10/21/20 09:48 56 L 99 10/21/20 09:43 66 98 10/21/20 09:38 65 99 10/21/20 09:33 60 145/74 98 10/21/20 09:28 59 L 99 10/21/20 09:23 58 L 98 10/21/20 09:18 64 100 10/21/20 09:13 61 99 10/21/20 09:08 63 99 10/21/20 09:03 59 L 147/70 98 10/21/20 08:58 58 L 99 10/21/20 08:53 52 L 100 10/21/20 08:48 59 L 99 10/21/20 08:43 56 L 99 10/21/20 08:38 62 99 10/21/20 08:33 57 L 148/81 99 10/21/20 08:28 59 L 100 10/21/20 08:26 71 154/80 10/21/20 08:23 58 L 99 10/21/20 08:18 66 99 10/21/20 08:13 64 166/95 99 10/21/20 08:08 55 L 99 10/21/20 08:04 55 L 169/86 10/21/20 08:03 56 L 98 10/21/20 07:58 57 L 99 10/21/20 07:53 63 98 Intake and Output 10/21/20 10/22/20 10/22/20 22:59 06:59 14:59 Intake Total 600 Output Total 900 600 Balance -900 0 Intake: Intake, Free Water 600 Output: Urine 900 600 Indwelling Catheter 900 Void 600 Other: Total, Output Amount 550 600 # Voids Indwelling Catheter 1 Void 1 - Exam Uterus: Present: normal, firm - Labs Labs: Abnormal lab results 10/21/20 10/21/20 Range/Units 08:55 13:34 Magnesium 4.20 H 4.00 H (1.7-2.3) mg/dL
--- NOTE | 2020-10-22 07:55 | Discharge Summary ---
Providers - Providers Date of Admission: 10/18/20 03:01 Date of discharge: 10/22/20 Attending physician: CLIFTON CLARK 10/20/20 12:56 Consult to Physician [CONS] Stat Comment: Consulting Provider: PEREZ RAO Physician Instructions: Reason For Exam: Primary care physician: CLIFTON CLARK Hospitalization Reason for admission: induction of labor Delivery: Discharge diagnosis: IUP at term delivered Hospital course: Patient admitted for IOL for gestational hypertension. Had . Received magnesium . Patient was covid positive during her admission without symptoms Condition at discharge: Good Disposition: DC-01 TO HOME OR SELFCARE - Discharge Diagnoses (1) Preeclampsia in period Status: Acute (2) Vaginal delivery Status: Acute Plan - Discharge Medications Prescriptions: Ibuprofen [Motrin] 600 mg PO Q8H PRN #60 tablet PRN Reason: Pain Ibuprofen [Motrin] 800 mg PO Q8HR PRN #30 tablet PRN Reason: Pain , Severe (7-10) HYDROcodone/APAP 5-325 [[place] 5/325] 1 each PO Q6HR PRN #15 tablet PRN Reason: Pain - Provider Discharge Summary Activity: no sex for 6 weeks, no heavy lifting 4 weeks, no strenuous exercise Diet: routine Instructions: routine Additional instructions: [] Smoking cessation referral if applicable(refer to patient education folder for contact #) [] Refer to [facility] Booklet Call your doctor immediately for: * Fever > 100.5 * Heavy vaginal bleeding ( >1 pad per hour) * Severe persistent headache * Shortness of breath * Reddened, hot, painful area to leg or breast * schedule visit in 4 weeks - Follow up plan
[2020-10-22] MEDS ORDERED: TETANUS,DIPH,PERTUSS(ACELL) VACCINE 0.5 ML SYRINGE IM ONE (12:00)
[2020-10-22 15:34] VITALS: BP 158/91
== END 2020-10-22 16:00 | disposition home or self-care (01) | DRG 805 ==
LOC: TRG 22:56 → APU 22:58 → TRG 10-18 03:01 → LD 10-18 03:01 → OB 10-21 19:41
PROVIDERS: ADMIT Obstetrics & Gynecology; ATTEND Obstetrics & Gynecology
PROC: 10E0XZZ Delivery of Products of Conception, External Approach (ICD-10-PCS; principal; 2020-10-20)
PROC: 10907ZC Drainage of Amniotic Fluid, Therapeutic from Products of Conception, Via Natural or Artificial Opening (ICD-10-PCS; 2020-10-20)
PROC: 3E0DXGC Introduction of Other Therapeutic Substance into Mouth and Pharynx, External Approach (ICD-10-PCS; 2020-10-20)
PROC: 3E033VJ Introduction of Other Hormone into Peripheral Vein, Percutaneous Approach (ICD-10-PCS; 2020-10-20)
PROC: 3E0R3BZ Introduction of Anesthetic Agent into Spinal Canal, Percutaneous Approach (ICD-10-PCS; 2020-10-20)
PROC: 00HU33Z Insertion of Infusion Device into Spinal Canal, Percutaneous Approach (ICD-10-PCS; 2020-10-20)
PROC: 3E0234Z Introduction of Serum, Toxoid and Vaccine into Muscle, Percutaneous Approach (ICD-10-PCS; 2020-10-22)
DX: O13.4 Gestational [pregnancy-induced] hypertension without significant proteinuria, complicating childbirth (principal); U07.1 COVID-19; Z37.0 Single live birth; O98.32 Other infections with a predominantly sexual mode of transmission complicating childbirth; O98.52 Other viral diseases complicating childbirth; Z23 Encounter for immunization; A60.00 Herpesviral infection of urogenital system, unspecified; O14.14 Severe pre-eclampsia complicating childbirth; O99.824 Streptococcus B carrier state complicating childbirth; O99.62 Diseases of the digestive system complicating childbirth; O99.214 Obesity complicating childbirth; E66.9 Obesity, unspecified; O99.334 Smoking (tobacco) complicating childbirth; K21.9 Gastro-esophageal reflux disease without esophagitis; F17.200 Nicotine dependence, unspecified, uncomplicated; Z3A.34 34 weeks gestation of pregnancy
CPT/HCPCS: 36415; 59020; 59025; 76805; 76816; 81001; 82565; 83615; 83735; 84450; 84460; 84550; 85014; 85018; 85027; 86850; 86900; 86901; 90715; 96361; 96365; 96366; 96367; 96374; G0378; C9113; J0290; J0595; J1100; J2405; J2590; J3475; J7120; U0003